=== PATIENT | female | born 1960 | race Caucasian/White ===

== ENCOUNTER 2018-07-19 00:27 | Outpatient (CLI) | payer BC, SELFPAY ==
--- NOTE | 2018-07-19 12:53 | DI.MAMMO_ITS ---
SYMPTOMS/DIAGNOSIS: SCREENING, Z12.31 MAMMOGRAMS: Mammograms were interpreted according to the usual protocol including computer analysis with CAD system, tomosynthesis and C view imaging. Comparison is with the prior examinations. No suspicious masses or microcalcifications are seen. There is no definite evidence of malignancy. IMPRESSION: Negative mammogram. Routine screening is recommended. Category 1, breast density B. MQSA ASSESSMENT OF FINDINGS: Negative. Category 1. Patient will receive a letter notifying them of these results. BI-RADS category B. There are scattered areas of fibroglandular density.
== END 2018-07-19 00:47 ==
PROVIDERS: PCP Emergency Medicine; Visit Provider Nurse Practitioner Women's Health
DX: Z12.31 Encounter for screening mammogram for malignant neoplasm of breast (principal)
CPT/HCPCS: 77063; 77067

== ENCOUNTER 2019-03-20 07:00 | Outpatient (CLI) | payer BC, SELFPAY ==
[2019-03-20 14:03] LABS: Calculated LDL 173 mg/dL; Cholesterol 277 mg/dL (50-200); HDL Cholesterol 82 mg/dL (40-60); TSH 0.46 uIU/mL (0.36-3.74); Triglyceride 114 mg/dL (30-150)
== END 2019-03-20 07:20 ==
PROVIDERS: PCP Emergency Medicine; Visit Provider Emergency Medicine
DX: E03.9 Hypothyroidism, unspecified (principal); E78.5 Hyperlipidemia, unspecified
CPT/HCPCS: 36415; 80061; 84443

== ENCOUNTER 2019-04-26 01:21 | Outpatient (CLI) | payer BC, SELFPAY ==
[2019-04-26 09:57] LABS: ALT 28 U/L (14-59); AST 23 U/L (15-37); Albumin 3.8 g/dL (3.4-5.0); Alkaline Phosphatase 54 U/L (46-116); Anion Gap 7.6 mmol/L (3-11); BUN 13 mg/dL (7-18); Bilirubin, Total 0.5 mg/dL (0.2-1.0); CO2 30.4 mmol/L (21.0-32.0); CREATININE 0.82 mg/dL (0.55-1.02); Calcium 8.8 mg/dL (8.5-10.1); Chloride 105 mmol/L (98-107); Glucose 81 mg/dL (74-106); Potassium 4.1 mmol/L (3.5-5.1); Sodium 143 mmol/L (136-145); Total Protein 6.6 g/dL (6.4-8.2)
== END 2019-04-26 01:41 ==
PROVIDERS: PCP Emergency Medicine; Visit Provider Internal Medicine
DX: E78.00 Pure hypercholesterolemia, unspecified (principal)
CPT/HCPCS: 36415; 80053; 83695

== ENCOUNTER 2019-04-29 01:26 | Outpatient (CLI) | payer BC, SELFPAY ==
[2019-04-30 12:47] LABS: Lipoprotein (a) 48 mg/dL (<=30)
== END 2019-04-29 01:46 ==
PROVIDERS: PCP Emergency Medicine; Visit Provider Internal Medicine
DX: E78.00 Pure hypercholesterolemia, unspecified (principal)
CPT/HCPCS: 36415; 83695

== ENCOUNTER 2019-10-16 11:07 | Outpatient (REF) | payer BC, SELFPAY ==
--- NOTE | 2019-10-16 08:30 | PAPFT_PTH ---
PATIENT: Kary Alfaro LOC: [facility] U#:[id number] AGE/SX: 59/F ROOM: RE10/16/[address]: Jennifer Shook NP : 1960 BED: DIS: 10/16/2019 SPEC #: [id number] RECD: 10/16/19 12:55 STATUS: SARAH BETHKaiser REMagnus #: [id number] SOUTH: 10/16/19 08:[address]: Jennifer Shook NP DEPT: [facility] Cytology RECD BY: Argenis Arrieta ENTERED: 10/16/19 12:56 SP TYPE: PAPFT OTHR DR: Vikram Brower, DO Tissues: 1 - CX/ENDOCX FOR PAP SMEARS Procedures: PAP THIN PREP/UVM Screening HPV DNA PROBE Comments: [id number]
== END 2019-10-16 11:27 ==
LOC: LBN 11:07
PROVIDERS: PCP Emergency Medicine; Visit Provider Nurse Practitioner Women's Health
DX: Z12.4 Encounter for screening for malignant neoplasm of cervix (principal); Z11.51 Encounter for screening for human papillomavirus (HPV)
CPT/HCPCS: 88142; 87624

== ENCOUNTER 2019-12-06 02:45 | Outpatient (CLI) | payer BC, SELFPAY ==
--- NOTE | 2019-12-06 07:49 | DI.MAMMO_ITS ---
EXAM: MAMMO SCREENING CLINICAL HISTORY: screening,Z12.39 TECHNIQUE: Mammograms were interpreted according to the usual protocol including computer analysis w [employer] CAD system, tomosynthesis and C-view imaging. COMPARISON: 2012 through 2018 FINDINGS: The breasts are composed of scattered fibroglandular densities, Breast Density category B. No suspicious masses or suspicious microcalcifications are seen. No skin thickening or abnormal axillary lymph nodes are seen. There has been no significant change from prior exams. There is mild scarring related to breast redu ction. IMPRESSION: BI-RADS Category 1, Negative mammogram Yearly screening mammography is recommended. Breast Density Category B, scattered fibroglandular densities.
== END 2019-12-06 03:05 ==
PROVIDERS: PCP Emergency Medicine; Visit Provider Nurse Practitioner Women's Health
DX: Z12.31 Encounter for screening mammogram for malignant neoplasm of breast (principal); R92.2 Inconclusive mammogram
CPT/HCPCS: 77063; 77067

== ENCOUNTER 2020-03-24 13:48 | Outpatient (REF) | payer BC, SELFPAY ==
[2020-03-24 15:29] LABS: TSH 0.38 uIU/mL (0.36-3.74)
== END 2020-03-24 14:08 ==
LOC: LBN 13:48
PROVIDERS: PCP Emergency Medicine; Visit Provider Emergency Medicine
DX: E03.9 Hypothyroidism, unspecified (principal)
CPT/HCPCS: 84443

== ENCOUNTER 2020-12-08 02:06 | Outpatient (CLI) | payer BC, SELFPAY ==
--- NOTE | 2020-12-08 07:42 | DI.MAMMO_ITS ---
Exam(s) MAMMO SCREENING EXAM: MAMMO SCREENING CLINICAL HISTORY: screening, hx breast reduction surgery TECHNIQUE: Mammograms were interpreted according to the usual protocol including computer analysis w [employer] CAD system, tomosynthesis and C-view imaging. COMPARISON: FINDINGS: The breasts are of moderate density with fairly symmetrical distribution of fibroglandular tissue. N o dominant mass or clumped microcalcification is identified in either breast. Current examination is compared with previous examinations including November 2019 and there has been no gross interval change in appearance in comparison with the prior studies. IMPRESSION: No specific evidence of malignancy at this time. Routine screening examinations are suggested at yea rly intervals in this age group according to the ACS ACR guidelines. BI-RADS Category 1 - Negative Breast Density - Category B - Scattered areas of fibroglandular density
== END 2020-12-08 02:26 ==
PROVIDERS: PCP Emergency Medicine; Visit Provider Nurse Practitioner Women's Health
DX: Z12.31 Encounter for screening mammogram for malignant neoplasm of breast (principal); Z98.890 Other specified postprocedural states
CPT/HCPCS: 77063; 77067

== ENCOUNTER 2021-04-15 02:44 | Outpatient (CLI) | payer BC, SELFPAY ==
[2021-04-15 10:18] LABS: TSH 0.51 uIU/mL (0.36-3.74)
== END 2021-04-15 02:45 | disposition home or self-care (01) ==
LOC: LBO 02:44
PROVIDERS: PCP Emergency Medicine; Visit Provider Emergency Medicine
DX: E03.9 Hypothyroidism, unspecified (principal)
CPT/HCPCS: 36415; 84443

== ENCOUNTER → 2022-01-11 00:48 | Outpatient (CLI) | payer BC, SELFPAY ==
--- NOTE | 2022-01-11 06:45 | DI.MAMMO_ITS ---
Exam(s) MAMMO SCREENING EXAM: MAMMO SCREENING CLINICAL HISTORY: screening,Z12.39,S/P BREAST REDUCTION,Z98.890 TECHNIQUE: Bilateral full field digital CC and MLO mammographic images were obtained with 3D tomosyn thesis and utilizing computer aided detection (CAD). COMPARISON: Available for comparison. FINDINGS: Masses/Architectural Distortion: None seen. Microcalcifications: No suspicious pleomorphic-type are seen. Skin Thickening/Nipple Retraction: None. IMPRESSION: 1. No significant interval change with no specific features of malignancy noted. 2. Unless there is more urgent need, screening mammography is recommended, as per [place] [employer] guidelines. BI-RADS Category 1 - Negative Breast Density - Category B - Scattered areas of fibroglandular density Breast density category C or D implies that the patient has dense breast tissue. Dense breast tissue is very common and is not abnormal but dense breast tissue can make it harder to find cancer on a ma mmogram. Also, dense breast tissue may increase their breast cancer risk. This information about the result of the mammogram report was provided to the patient to raise their awareness. Use this report when you speak with the patient about their risks for breast cancer, which includes their family hist ory. At that time, you may recommend for more screening tests (Ultrasound or MRI) as they might be us eful based on their risk. A negative radiographic report should not delay biopsy if a dominant or clinically suspicious mass is present. Up to ten percent of cancers are not identified on mammography. A negative report may reinforce clinical impression. Adenosis and dense breasts may obscure an underlying neoplasm. False positive reports average 6 to 10%. Patient will receive a letter notifying them of these results.
== END ==
PROVIDERS: PCP Family Medicine; Visit Provider Nurse Practitioner Women's Health
DX: Z12.31 Encounter for screening mammogram for malignant neoplasm of breast (principal); Z98.890 Other specified postprocedural states
CPT/HCPCS: 77063; 77067

== ENCOUNTER 2022-05-27 01:25 | Outpatient (CLI) | payer BC, SELFPAY ==
[2022-05-27 10:40] LABS: TSH (W/Ref FT4) 0.47 uIU/mL (0.36-3.74)
== END 2022-05-27 01:26 | disposition home or self-care (01) ==
PROVIDERS: PCP Family Medicine; Visit Provider Family Medicine
DX: E89.0 Postprocedural hypothyroidism; Y83.8 Other surgical procedures as the cause of abnormal reaction of the patient, or of later complication, without mention of misadventure at the time of the procedure
CPT/HCPCS: 36415; 84443

== ENCOUNTER → 2023-05-26 13:55 | Outpatient (CLI) | payer BC, SELFPAY ==
--- NOTE | 2023-05-26 12:30 | DI.RAD_ITS ---
Exam(s) XR WRIST LT COMPLETE XR WRIST RT COMPLETE EXAM: XR WRIST LT COMPLETE CLINICAL HISTORY: M25.532 pain left wrist, M25.531 pain rt wrist bilat wrist pain. TECHNIQUE: 2D digital imaging was performed. Three views. COMPARISON: CR XR WRIST RT COMPLETE from 05/26/2023 FINDINGS: BONES: No acute fracture is present. No bony destructive lesion is seen. JOINTS: The carpal bones are normally aligned. SOFT TISSUE: Normal. IMPRESSION: Unremarkable radiographs of bilateral wrists. DATA REPOSITORY: RADIATION DOSE DELIVERED:
--- NOTE | 2023-05-26 12:30 | DI.RAD_ITS ---
Exam(s) XR KNEE LT 3V AP,LAT,LORRI EXAM: XR KNEE LT 3V AP,LAT,LORRI CLINICAL HISTORY: M17.12 Ostoarthritis left knee,left knee pain. TECHNIQUE: 2D digital imaging was performed. Three views. COMPARISON: No exams were available for comparison FINDINGS: BONES: No acute fracture is present. No bony destructive lesion is seen. Enthesophyte upper pole of the patella. JOINTS: The knee is normally aligned. No joint effusion is seen. The joint spaces are maintained. No significant periarticular spurring. SOFT TISSUE: Normal. IMPRESSION: Unremarkable radiographs of the left knee. DATA REPOSITORY: RADIATION DOSE DELIVERED:
== END ==
PROVIDERS: PCP Family Medicine; Visit Provider Family Medicine
DX: M17.12 Unilateral primary osteoarthritis, left knee (principal); M25.531 Pain in right wrist; M25.532 Pain in left wrist
CPT/HCPCS: 73562; 73110

== ENCOUNTER → 2023-05-30 03:02 | Outpatient (CLI) | payer BC, SELFPAY ==
--- NOTE | 2023-05-30 07:30 | DI.MAMMO_ITS ---
Exam(s) MAMMO SCREENING EXAM: MAMMO SCREENING CLINICAL HISTORY: screening,z12.39 TECHNIQUE: Bilateral full field digital CC and MLO mammographic images were obtained with 3D tomosyn thesis and utilizing computer aided detection (CAD). COMPARISON: Available for comparison. FINDINGS: Masses/Architectural Distortion: The nodular density in the posterior left breast on the CC view appe ars stable. No new nodules or areas of architectural distortion are seen. Microcalcifications: No suspicious pleomorphic-type are seen. Skin Thickening/Nipple Retraction: None. IMPRESSION: 1. No significant interval change with no specific features of malignancy noted. 2. Unless there is more urgent need, screening mammography is recommended, as per [place] [employer] guidelines. BI-RADS Category 2 - Benign Findings Breast Density - Category B - Scattered areas of fibroglandular density Breast density category C or D implies that the patient has dense breast tissue. Dense breast tissue is very common and is not abnormal but dense breast tissue can make it harder to find cancer on a ma mmogram. Also, dense breast tissue may increase their breast cancer risk. This information about the result of the mammogram report was provided to the patient to raise their awareness. Use this report when you speak with the patient about their risks for breast cancer, which includes their family hist ory. At that time, you may recommend for more screening tests (Ultrasound or MRI) as they might be us eful based on their risk. A negative radiographic report should not delay biopsy if a dominant or clinically suspicious mass is present. Up to ten percent of cancers are not identified on mammography. A negative report may reinforce clinical impression. Adenosis and dense breasts may obscure an underlying neoplasm. False positive reports average 6 to 10%. Patient will receive a letter notifying them of these results.
--- NOTE | 2023-05-30 07:30 | DI.RAD_ITS ---
Exam(s) XR SACROILIAC JOINTS EXAM: XR SACROILIAC JOINTS CLINICAL HISTORY: Low back, SI joint pain,m54.9. TECHNIQUE: 2D digital imaging was performed. Three images were obtained. COMPARISON: CR SACRO ILIAC JOINTS from 01/08/2010 CR LUMBAR SPINE COMPLETE from 01/08/2010 FINDINGS: Bones: No fracture is present. No bony destructive lesion is seen. Alignment is satisfactory. Modera te degenerative changes are seen at L5-S1. SI Joint:No fusion, erosions or sclerosis is seen. Soft Tissue: Normal. IMPRESSION: 1. Normal radiographs of the SI Joints. 2. Moderate degenerative changes at L5-S1. DATA REPOSITORY: RADIATION DOSE DELIVERED:
== END ==
PROVIDERS: PCP Family Medicine; Visit Provider Family Medicine
DX: Z12.31 Encounter for screening mammogram for malignant neoplasm of breast; M51.37 Other intervertebral disc degeneration, lumbosacral region
CPT/HCPCS: 77063; 77067; 72202

== ENCOUNTER 2023-06-07 04:17 | Outpatient (CLI) | payer BC, SELFPAY ==
[2023-06-07 07:22] LABS: ESR 2 mm/hr (0-30)
[2023-06-07 08:45] LABS: BUN 18 mg/dL (7-18); CREATININE 0.9 mg/dL (0.55-1.02); Calcium 8.9 mg/dL (8.5-10.1); Calculated LDL 194 mg/dL (<100); Chloride 104 mmol/L (98-107); Cholesterol 305 mg/dL (<200); Estimated GFR 71.83 (mL/min/1.73m2); Glucose 93 mg/dL (74-106); HDL Cholesterol 93 mg/dL (40-60); Potassium 3.9 mmol/L (3.5-5.1); Sodium 142 mmol/L (136-145); Triglyceride 93 mg/dL (<150)
[2023-06-07 08:55] LABS: Uric Acid 4.8 mg/dL (2.6-6.0)
[2023-06-07 17:34] LABS: Rheumatoid Factor <8.6 IU/mL (<12.0)
[2023-06-08 13:17] LABS: ANA Interpretation Negative (Negative)
== END 2023-06-07 04:18 | disposition home or self-care (01) ==
LOC: LBO 04:17
PROVIDERS: PCP Family Medicine; Visit Provider Family Medicine
DX: E89.0 Postprocedural hypothyroidism; Z13.6 Encounter for screening for cardiovascular disorders; Z13.1 Encounter for screening for diabetes mellitus; M17.12 Unilateral primary osteoarthritis, left knee; M25.531 Pain in right wrist
CPT/HCPCS: 36415; 80048; 80061; 85652; 84443; 84550; 86038; 86431

== ENCOUNTER 2024-06-13 02:01 | Outpatient (CLI) | payer BC, SELFPAY ==
[2024-06-13 09:53] LABS: Anion Gap 4.1 mmol/L (3-11); BUN 15 mg/dL (7-18); CO2 30.9 mmol/L (21.0-32.0); Calcium 9.1 mg/dL (8.5-10.1); Calculated LDL 172 mg/dL (<100); Chloride 105 mmol/L (98-107); Cholesterol 281 mg/dL (<200); Estimated GFR 62.91 (mL/min/1.73m2); Glucose 97 mg/dL (74-106); HDL Cholesterol 89 mg/dL (40-60); Potassium 4.2 mmol/L (3.5-5.1); Sodium 140 mmol/L (136-145); Triglyceride 104 mg/dL (<150)
== END 2024-06-13 02:02 | disposition home or self-care (01) ==
PROVIDERS: PCP Family Medicine; Visit Provider Family Medicine
DX: Z13.6 Encounter for screening for cardiovascular disorders (principal); E78.5 Hyperlipidemia, unspecified; I10 Essential (primary) hypertension; E03.9 Hypothyroidism, unspecified; E89.0 Postprocedural hypothyroidism
CPT/HCPCS: 36415; 80048; 80061; 84443

== ENCOUNTER 2024-06-14 00:48 | Outpatient (CLI) | payer BC, SELFPAY ==
--- NOTE | 2024-06-14 07:30 | DI.MAMMO_ITS ---
Exam(s) US AXILLA LT MG MAMMO DIAGNOSTIC BI EXAM: MG MAMMO DIAGNOSTIC BI CLINICAL HISTORY: lt axilla fullness,R22.32. COMPARISON: US US AXILLA LT from 06/14/2024 Mammograms from 2015 through 2023 TECHNIQUE: Craniocaudal and mediolateral oblique Full Field Digital Mammography views of both breast s with Computer Aided Diagnosis followed by Tomosynthesis and left axillary ultrasound. FINDINGS: Mammography/Tomosynthesis: Masses: None seen. Architectural Distortion: Mild scarring due to bilateral breast reduction, unchanged. Microcalcifications: No suspicious pleomorphic-type are seen. Skin Thickening/Nipple Retraction: None. Left axilla US: Shadowing: No suspicious foci. Cyst: None. Solid lesions: A normal appearing lymph node measuring 10 x 6 x 14 millimeters. Normal fatty hilum. No suspicious lymph nodes. Small hypoechoic area at the chest wall border of the inferior breast likely representing area scarri ng. IMPRESSION: 1. No evidence of malignancy is noted. 2. Unless there is more urgent need, follow-up screening mammography is recommended, as per [place] [employer] guidelines. BI-RADS Category 1 - Negative Breast Density - Category B - Scattered areas of fibroglandular density A negative radiographic report should not delay biopsy if a dominant or clinically suspicious mass is present. Up to ten percent of cancers are not identified on mammography. A negative report may reinforce clinical impression. Adenosis and dense breasts may obscure an underlying neoplasm. False positive reports average 6 to 10%. Patient will receive a letter notifying them of these results.
== END 2024-06-14 01:08 ==
LOC: DI 00:48
PROVIDERS: PCP Family Medicine; Visit Provider Family Medicine
DX: Z12.31 Encounter for screening mammogram for malignant neoplasm of breast (principal); R22.32 Localized swelling, mass and lump, left upper limb
CPT/HCPCS: 76642; 77062; 77066; G0279

== ENCOUNTER 2024-06-17 09:12 | Outpatient (REF) | payer BC, SELFPAY ==
--- NOTE | 2024-06-17 08:40 | PAPFT_PTH ---
PATIENT: Kary Alfaro LOC: [facility] U#:[id number] AGE/SX: 64/F ROOM: RE06/17/[address]: Jennifer Shook NP : 1960 BED: DIS: 06/17/2024 SPEC #: [id number] RECD: 06/17/24 13:20 STATUS: KEVIN REMagnus #: [id number] SOUTH: 06/17/24 08:[address]: Jennifer Shook NP DEPT: [facility] Cytology RECD BY: Argenis Arrieta ENTERED: 06/17/24 13:21 SP TYPE: PAPFT LINDSEY DR: Nelida Boothe Tissues: 1 - CX/ENDOCX FOR PAP SMEARS Procedures: PAP THIN PREP/[facility]VM Screening HPV DNA PROBE Comments: [id number] (HPV 16 & 18/45)
== END 2024-06-17 09:13 | disposition home or self-care (01) ==
LOC: LBN 09:12
PROVIDERS: PCP Family Medicine; Visit Provider Nurse Practitioner Women's Health
DX: Z11.51 Encounter for screening for human papillomavirus (HPV) (principal); Z01.419 Encounter for gynecological examination (general) (routine) without abnormal findings
CPT/HCPCS: 88142; 87624